=== PATIENT | female | born 1965 | race Caucasian/White ===

== ENCOUNTER 2016-12-29 15:57 | Emergency (ER) | payer SELFPAY ==
--- NOTE | 2016-12-29 17:33 | ED CLINICAL REPORT ---
Clinical Report - Physicians/Mid Levels [facility] [address] [place] [address] 12/29/2016 16:00 Patient: CONNOR DO Time Seen: 16:54 Dec 29 2016. Arrived- By private vehicle. HISTORY OF PRESENT ILLNESS Chief Complaint: SORE THROAT. 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 There has been no pain. The patient has had mouth sores. (reports recent dental pain, is on her second round of antibiotics, reports now rash inside her mouth. Denies fevers or chills. Denies any difficulties falling. Denies a cough. Recently moved to the area. Patient does not take any medications for her diabetes. Reports diet-controlled.). Recent medical care: The patient was seen recently in the office. REVIEW OF SYSTEMS No fever, difficulty breathing, nausea, diarrhea or headache. No fainting episodes. All systems otherwise negative, except as recorded above. PAST HISTORY Problems: Dental Caries. Hypertension. Diabetes Mellitus. Additional Surgeries: Hysterectomy. Vaginal repair. Medications: Tylenol Oral, PRN. Lisinopril Oral 20 mg, daily. Clindamycin HCl Oral (finished today). Allergies: Benadryl. Codeine.(nausea). SOCIAL HISTORY No drug use. ADDITIONAL NOTES The nursing notes have been reviewed. PHYSICAL EXAM Vital Signs: 12/29/2016 16:14 BP: 156/80. HR: 114. RR: 17. O2 saturation: 97%. Temp: 98.8 F. Appearance: Alert. No acute distress. ENT: Ears normal. Nose normal. A few mouth ulcerations present on the soft palate and buccal surface (white). No muffled or hoarse voice, drooling or trismus. Neck: Trachea midline. CVS: Normal heart rate and rhythm. Heart sounds normal. Respiratory: No respiratory distress. Breath sounds normal. LABS, X-RAYS, AND EKG Laboratory Tests: CBC w Diff: (SAL: 12/29/2016 17:00) ( MsgRcvd 12/29/2016 17:15) Final results Test Result Flag Units (Reference) WHITE BLOOD COUNT 5.3 K/uL (4.5-11.5) RED BLOOD COUNT 4.86 M/uL (4.00-5.20) HEMOGLOBIN 14.0 gm/dL (12.0-16.0) HEMATOCRIT 41.7 % (36.0-46.0) MEAN CELL VOLUME 86 fL (80-100) MEAN CORPUSCULAR HGB 29 pg (26-34) MEAN CORPUSCULAR HGB CONC 34 g/dL (31-37) RED CELL DISTRIBUTION WIDTH 11.5 L % (11.6-14.8) PLATELET COUNT 153 K/uL (150-400) NEUTROPHIL % 77.1 H % (50-75) LYMPH % 11.7 L % (25-40) MONO % 9.8 % (3-14) EOSINOPHIL % 1.2 % (0-4) BASOPHIL % 0.2 % (0-2) CMP: (SAL: 12/29/2016 17:00) ( MsgRcvd 12/29/2016 17:30) Final results Test Result Flag Units (Reference) GLUCOSE 445 H mg/dL (70-110) BUN 19 H mg/dL (7-18) CREATININE 0.8 mg/dL (0.6-1.3) Estimated GFR >60 mL/min Estimated GFR- >60 mL/min Note: Persistent reduction over 3 months in eGFR<60 mL/min/1.73 m2 defines CKD. Patients with eGFR values>=60 mL/min/1.73 m2 may also have CKD if evidence ofpersistent proteinuria. Additional information may be foundat www.kidney.org. SODIUM 134 L mmol/L (136-145) POTASSIUM 4.3 mmol/L (3.5-5.1) CHLORIDE 97 L mmol/L (98-107) CARBON DIOXIDE 28 mmol/L (21-32) CALCIUM 9.0 mg/dL (8.5-10.1) TOTAL PROTEIN 7.0 g/dL (6.4-8.2) ALBUMIN 3.5 g/dL (3.3-5.0) BILIRUBIN, TOTAL 0.5 mg/dL (0.0-1.0) ALKALINE PHOSPHATASE 52 U/L (46-116) AST (SGOT) 7 L U/L (15-37) ALT (SGPT) 18 U/L (12-78) . PROGRESS AND PROCEDURES Course of Care: Glucose: 450 16:16 10 units sc insulin R 17:30. Glucose: 381. Signs of thrush in setting of dm. Elevated glucose in ER, pt reports she does not take meds. CBC/ CMP negative, will initiate metformin, otherwise pt stable, and to establish pcp, given options for such. TO f/u outpatient. Non septic at this time. 12/29/2016 16:14 BP: 156/80. HR: 114. RR: 17. O2 saturation: 97%. Temp: 98.8 F. Patient is stable. Physical exam findings are improved. Symptoms better. Patient/family counseled. Differential Diagnosis: I considered viral pharyngitis, bacterial pharyngitis, mycoplasmal pharyngitis, gonococcal pharyngitis, palatine tonsillitis, thrush, aphthous stomatitis, herpetic gingivostomatitis, allergic stomatitis, erythema multiforme, mononucleosis, diphtheria, peritonsillar cellulitis, parapharyngeal abscess and sinusitis as a possible cause of sore throat in this patient. This is a partial list of diagnoses considered. Disposition: Discharged. Condition: good. CLINICAL IMPRESSION Chronic, poorly controlled type 2 diabetes. Hypertension. INSTRUCTIONS Drink plenty of fluids. ( [facility]). Prescription Medications: Ultram 50 mg: take 1 orally every 6 hours for 3 days. Dispense fifteen (15). No refills. Substitution is permissible. Metformin 500 mg: Take 1 orally every 12 hours. Dispense thirty (30). No refills. Fluconozole 200 mg po on day one, no refill. Fluconazole 150 mg po once daily for 7 days. Follow-up with: Salome Barry MD, [facility], , [facility], [address] [place] [address] Follow up. Call for the next available appointment. (Electronically signed by Es Delgado P.A.-C 12/29/2016 18:03)
--- NOTE | 2016-12-29 17:33 | ED CLINICAL REPORT ---
Clinical Report - Physicians/Mid Levels [facility] [address] [place] [address] 12/29/2016 16:00 Patient: CONNOR DO Time Seen: 16:54 Dec 29 2016. Arrived- By private vehicle. HISTORY OF PRESENT ILLNESS Chief Complaint: SORE THROAT. 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 There has been no pain. The patient has had mouth sores. (reports recent dental pain, is on her second round of antibiotics, reports now rash inside her mouth. Denies fevers or chills. Denies any difficulties falling. Denies a cough. Recently moved to the area. Patient does not take any medications for her diabetes. Reports diet-controlled.). Recent medical care: The patient was seen recently in the office. REVIEW OF SYSTEMS No fever, difficulty breathing, nausea, diarrhea or headache. No fainting episodes. All systems otherwise negative, except as recorded above. PAST HISTORY Problems: Dental Caries. Hypertension. Diabetes Mellitus. Additional Surgeries: Hysterectomy. Vaginal repair. Medications: Tylenol Oral, PRN. Lisinopril Oral 20 mg, daily. Clindamycin HCl Oral (finished today). Allergies: Benadryl. Codeine.(nausea). SOCIAL HISTORY No drug use. ADDITIONAL NOTES The nursing notes have been reviewed. PHYSICAL EXAM Vital Signs: 12/29/2016 16:14 BP: 156/80. HR: 114. RR: 17. O2 saturation: 97%. Temp: 98.8 F. Appearance: Alert. No acute distress. ENT: Ears normal. Nose normal. A few mouth ulcerations present on the soft palate and buccal surface (white). No muffled or hoarse voice, drooling or trismus. Neck: Trachea midline. CVS: Normal heart rate and rhythm. Heart sounds normal. Respiratory: No respiratory distress. Breath sounds normal. LABS, X-RAYS, AND EKG Laboratory Tests: CBC w Diff: (SAL: 12/29/2016 17:00) ( MsgRcvd 12/29/2016 17:15) Final results Test Result Flag Units (Reference) WHITE BLOOD COUNT 5.3 K/uL (4.5-11.5) RED BLOOD COUNT 4.86 M/uL (4.00-5.20) HEMOGLOBIN 14.0 gm/dL (12.0-16.0) HEMATOCRIT 41.7 % (36.0-46.0) MEAN CELL VOLUME 86 fL (80-100) MEAN CORPUSCULAR HGB 29 pg (26-34) MEAN CORPUSCULAR HGB CONC 34 g/dL (31-37) RED CELL DISTRIBUTION WIDTH 11.5 L % (11.6-14.8) PLATELET COUNT 153 K/uL (150-400) NEUTROPHIL % 77.1 H % (50-75) LYMPH % 11.7 L % (25-40) MONO % 9.8 % (3-14) EOSINOPHIL % 1.2 % (0-4) BASOPHIL % 0.2 % (0-2) CMP: (SAL: 12/29/2016 17:00) ( MsgRcvd 12/29/2016 17:30) Final results Test Result Flag Units (Reference) GLUCOSE 445 H mg/dL (70-110) BUN 19 H mg/dL (7-18) CREATININE 0.8 mg/dL (0.6-1.3) Estimated GFR >60 mL/min Estimated GFR- >60 mL/min Note: Persistent reduction over 3 months in eGFR<60 mL/min/1.73 m2 defines CKD. Patients with eGFR values>=60 mL/min/1.73 m2 may also have CKD if evidence ofpersistent proteinuria. Additional information may be foundat www.kidney.org. SODIUM 134 L mmol/L (136-145) POTASSIUM 4.3 mmol/L (3.5-5.1) CHLORIDE 97 L mmol/L (98-107) CARBON DIOXIDE 28 mmol/L (21-32) CALCIUM 9.0 mg/dL (8.5-10.1) TOTAL PROTEIN 7.0 g/dL (6.4-8.2) ALBUMIN 3.5 g/dL (3.3-5.0) BILIRUBIN, TOTAL 0.5 mg/dL (0.0-1.0) ALKALINE PHOSPHATASE 52 U/L (46-116) AST (SGOT) 7 L U/L (15-37) ALT (SGPT) 18 U/L (12-78) . PROGRESS AND PROCEDURES Course of Care: Glucose: 450 16:16 10 units sc insulin R 17:30. Glucose: 381. Signs of thrush in setting of dm. Elevated glucose in ER, pt reports she does not take meds. CBC/ CMP negative, will initiate metformin, otherwise pt stable, and to establish pcp, given options for such. TO f/u outpatient. Non septic at this time. 12/29/2016 16:14 BP: 156/80. HR: 114. RR: 17. O2 saturation: 97%. Temp: 98.8 F. Patient is stable. Physical exam findings are improved. Symptoms better. Patient/family counseled. Differential Diagnosis: I considered viral pharyngitis, bacterial pharyngitis, mycoplasmal pharyngitis, gonococcal pharyngitis, palatine tonsillitis, thrush, aphthous stomatitis, herpetic gingivostomatitis, allergic stomatitis, erythema multiforme, mononucleosis, diphtheria, peritonsillar cellulitis, parapharyngeal abscess and sinusitis as a possible cause of sore throat in this patient. This is a partial list of diagnoses considered. Disposition: Discharged. Condition: good. CLINICAL IMPRESSION Chronic, poorly controlled type 2 diabetes. Hypertension. INSTRUCTIONS Drink plenty of fluids. ( [facility]). Prescription Medications: Ultram 50 mg: take 1 orally every 6 hours for 3 days. Dispense fifteen (15). No refills. Substitution is permissible. Metformin 500 mg: Take 1 orally every 12 hours. Dispense thirty (30). No refills. Fluconozole 200 mg po on day one, no refill. Fluconazole 150 mg po once daily for 7 days. Follow-up with: Salome Barry MD, [facility], , [facility], [address] [place] [address] Follow up. Call for the next available appointment. (Electronically signed by Es Delgado P.A.-C 12/29/2016 18:03)
--- NOTE | 2016-12-29 17:34 | ED ORDER SUMMARY ---
..... Patient: CONNOR DO Order[facility] VisitID: [id number] [address] [place] [address] 51y, F Registration Date/Time: 12/29/2016 ORDER SHEET Weight: 66.9 kg (stated) Allergies: Codeine, Benadryl GENERAL ORDERS: POC Glucose (16:11 12/29/2016 EKoroleva P.A.-C) (16:15 ASchmuck) CBC w Diff Urgent (16:33 12/29/2016 EKoroleva P.A.-C) (Ack 16:42 LTapper) (20:11 omanelli R.N.) CMP Urgent (16:33 12/29/2016 EKoroleva P.A.-C) (Ack 16:42 LTapper) (20:11 Sujathaelli R.N.) MEDICATION ORDERS: Insulin Reg Subcut 10 units (HIGH ALERT MEDICATION, NOW) (16:20 12/29/2016 EKoroleva P.A.-C) (16:30 ASchmuck) Lidocaine Viscous PO (Solution 2 %) 15 mL (NOW) (16:20 12/29/2016 EKoroleva P.A.-C) (16:29 ASchmuck) IV FLUIDS: ORDER SHEET NOTES: [Electronically signed by Es DelgadoADonnie-C (18:03 12/29/2016)] [Electronically signed by Tony Dubose R.N. (20:12 12/29/2016)] [Electronically locked/signed by Tony Dubose R.N. (20:12 12/29/2016)]
--- NOTE | 2016-12-29 17:34 | ED ORDER SUMMARY ---
..... Patient: CONNOR DO OrderSheet [facility] VisitID: [id number] [address] [place] [address] 51y, F Registration Date/Time: 12/29/2016 ORDER SHEET Weight: 66.9 kg (stated) Allergies: Codeine, Benadryl GENERAL ORDERS: POC Glucose (16:11 12/29/2016 EKoroleva P.A.-C) (16:15 ASchmuck) CBC w Diff Urgent (16:33 12/29/2016 EKoroleva P.A.-C) (Ack 16:42 LTapper) (20:11 omanelli R.N.) CMP Urgent (16:33 12/29/2016 EKoroleva P.A.-C) (Ack 16:42 LTapper) (20:11 Sujathaelli R.N.) MEDICATION ORDERS: Insulin Reg Subcut 10 units (HIGH ALERT MEDICATION, NOW) (16:20 12/29/2016 EKoroleva P.A.-C) (16:30 ASchmuck) Lidocaine Viscous PO (Solution 2 %) 15 mL (NOW) (16:20 12/29/2016 EKoroleva P.A.-C) (16:29 ASchmuck) IV FLUIDS: ORDER SHEET NOTES: [Electronically signed by Es DelgadoADonnie-C (18:03 12/29/2016)] [Electronically signed by Tony Dubose R.N. (20:12 12/29/2016)] [Electronically locked/signed by Tony Dubose R.N. (20:12 12/29/2016)]
--- NOTE | 2016-12-29 17:34 | ED NURSING NOTES ---
Clinical Report - Nurses [facility] [address] [place] [address] 12/29/2016 16:00 [id number] Triage time 16:08 Dec 29 2016. Acuity: LEVEL 4. Chief Complaint: SORE THROAT. 16:14 12/29/16. Alert. No acute distress. SEPSIS SCREEN: Sepsis Screen. Negative (no infection suspected/documented). --16:14 Jocelyn Nassar 16:14 12/29/16. BP: 156/80. HR: 114. RR: 17. O2 saturation: 97%. Temp: 98.8 F. Pain level now 5/10. --16:14 Jocelyn Nassar. Weight: 66.9 kg stated. Height/Length: 60 inches Per Patient. BMI: 28.8. --16:14 Jocelyn Nassar. Medications Clindamycin HCl Oral (finished today). --16:09 Jocelyn Nassar Lisinopril Oral 20 mg, daily. --16:10 Jocelyn Nassar Tylenol Oral, PRN. --16:11 Jocelyn Nassar. Medication/allergy information source: the patient. --16:14 Jocelyn Nassar. Allergies Codeine.(nausea) --16:11 Jocelyn Nassar Benadryl. --16:11 Jocelyn Nassar. History Arrived by private vehicle. Historian: patient. Accompanied by spouse. No primary care physician. Onset. (Thursday). ( Pt has had a sore throat since Thursday. Reports white in mouth. Also reports a "bad tooth" that needs pulled.). She has had mouth sores and facial pain. No fever or hoarseness. She has had a toothache. 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 PAST MEDICAL HX: Dental caries. No history of strep throat or abscess. SOCIAL HX: Never smoker. Occasional alcohol use. No drug use. FALL RISK ASSESSMENT: Fall risk assessment completed. No fall risk identified. NUTRITIONAL RISK ASSESSMENT: The nutritional risk assessment revealed no deficiencies. FUNCTIONAL ASSESSMENT: Functional assessment: no impairments noted. LEARNING NEEDS ASSESSMENT: The learning needs assessment revealed no barriers. SKIN INTEGRITY ASSESSMENT: Skin integrity risk assessment completed. No skin integrity risk identified. --16:14 Jocelyn Nassar. PROBLEMS: Hypertension. Diabetes Mellitus. --16:09 Jocelyn Nassar. ADDITIONAL SURGERIES: Hysterectomy. Vaginal repair. --16:11 Jocelyn Nassar. Assessment The patient states feels the same. --16:14 Jocelyn Nassar. Interventions ID band on patient. --16:14 Jocelyn Nassar. PHYSICAL ASSESSMENT 16:15 12/29/16. Ambulatory to room. GENERAL / NEURO / PSYCH: Alert. Oriented X 4. Appears in no acute distress. HEENT: Pupils equal, round and reactive to light. Dental tenderness. Dental decay. Mucous membranes are pink. RESPIRATORY: Respirations not labored. CVS: Capillary refill less than 2 seconds. SKIN: Skin is warm and dry. Normal skin turgor. --16:15 Jocelyn Nassar. NURSING PROGRESS NOTES 16:15 12/29/16. The plan of care for this patient has been created. Head of bed elevated. Reassurance given. Two patient identifiers checked. Call light placed in reach. Side rails up x 1. Bed placed in lowest position. Brakes of bed on. Patient ready for evaluation- chart flagged and ED physician and PA notified. ( BGL 450). --16:15 Jocelyn Nassar Glucose: 450 16:16 Dec 29 2016. ( CBG 450). --16:16 Brady Garvin, R.N. 16:29 12/29/2016 Lidocaine Viscous PO Oral Suspension 5 mL given. Allergies verified and confirmed 5 rights. (Pt only wanted a partial dose.). --16:29 Jocelyn Nassar 16:30 12/29/2016 Insulin Reg Subcutaneous 10 unit given. Given in the right upper arm. Allergies verified and confirmed 5 rights. (ESTUARDO Weathers verified dose.). --16:30 Jocelyn Nassar 17:06 12/29/16. Care transferred and report given (Tony Alvarado RN). --17:06 Jocelyn Nassar 17:30. Point of care testing: performed by nurse. Glucose: 381. Result shown to the PA. Orders were received. --17:38 Tony Dubose R.N. DISPOSITION / DISCHARGE 17:45 12/29/16. BP: 136/85. HR: 78. RR: 16 (regular). O2 saturation: 98% on room air. Temp: 98.9 F (oral). Pain level now: 10. Additional comments: mouth sores. --20:09 Tony Dubose R.N. Departure time: 1750. --20:10 Tony Dubose R.N. 17:50. No learning barriers present. Discharge instructions provided and reviewed with the patient. Reviewed medication(s) dosing and course information. Reviewed referral to family practice for followup. Patient and spouse verbalized understanding. Written instructions provided in Setswana. The patient was discharged by the physician merchandising assistant. She was discharged home and accompanied by spouse. She left the Emergency Department ambulatory and via private vehicle. Spouse driving. --20:11 Tony Dubose R.N. Locked/Released at 12/29/2016 20:12 by Tony Dubose R.N.
--- NOTE | 2016-12-29 17:34 | ED NURSING NOTES ---
Clinical Report - Nurses [facility] [address] [place] [address] 12/29/2016 16:00 [id number] Triage time 16:08 Dec 29 2016. Acuity: LEVEL 4. Chief Complaint: SORE THROAT. 16:14 12/29/16. Alert. No acute distress. SEPSIS SCREEN: Sepsis Screen. Negative (no infection suspected/documented). --16:14 Jocelyn Nassar 16:14 12/29/16. BP: 156/80. HR: 114. RR: 17. O2 saturation: 97%. Temp: 98.8 F. Pain level now 5/10. --16:14 Jocelyn Nassar. Weight: 66.9 kg stated. Height/Length: 60 inches Per Patient. BMI: 28.8. --16:14 Jocelyn Nassar. Medications Clindamycin HCl Oral (finished today). --16:09 Jocelyn Nassar Lisinopril Oral 20 mg, daily. --16:10 Jocelyn Nassar Tylenol Oral, PRN. --16:11 Jocelyn Nassar. Medication/allergy information source: the patient. --16:14 Jocelyn Nassar. Allergies Codeine.(nausea) --16:11 Jocelyn Nassar Benadryl. --16:11 Jocelyn Nassar. History Arrived by private vehicle. Historian: patient. Accompanied by spouse. No primary care physician. Onset. (Thursday). ( Pt has had a sore throat since Thursday. Reports white in mouth. Also reports a "bad tooth" that needs pulled.). She has had mouth sores and facial pain. No fever or hoarseness. She has had a toothache. 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 PAST MEDICAL HX: Dental caries. No history of strep throat or abscess. SOCIAL HX: Never smoker. Occasional alcohol use. No drug use. FALL RISK ASSESSMENT: Fall risk assessment completed. No fall risk identified. NUTRITIONAL RISK ASSESSMENT: The nutritional risk assessment revealed no deficiencies. FUNCTIONAL ASSESSMENT: Functional assessment: no impairments noted. LEARNING NEEDS ASSESSMENT: The learning needs assessment revealed no barriers. SKIN INTEGRITY ASSESSMENT: Skin integrity risk assessment completed. No skin integrity risk identified. --16:14 Jocelyn Nassar. PROBLEMS: Hypertension. Diabetes Mellitus. --16:09 Jocelyn Nassar. ADDITIONAL SURGERIES: Hysterectomy. Vaginal repair. --16:11 Jocelyn Nassar. Assessment The patient states feels the same. --16:14 Jocelyn Nassar. Interventions ID band on patient. --16:14 Jocelyn Nassar. PHYSICAL ASSESSMENT 16:15 12/29/16. Ambulatory to room. GENERAL / NEURO / PSYCH: Alert. Oriented X 4. Appears in no acute distress. HEENT: Pupils equal, round and reactive to light. Dental tenderness. Dental decay. Mucous membranes are pink. RESPIRATORY: Respirations not labored. CVS: Capillary refill less than 2 seconds. SKIN: Skin is warm and dry. Normal skin turgor. --16:15 Jocelyn Nassar. NURSING PROGRESS NOTES 16:15 12/29/16. The plan of care for this patient has been created. Head of bed elevated. Reassurance given. Two patient identifiers checked. Call light placed in reach. Side rails up x 1. Bed placed in lowest position. Brakes of bed on. Patient ready for evaluation- chart flagged and ED physician and PA notified. ( BGL 450). --16:15 Jocelyn Nassar Glucose: 450 16:16 Dec 29 2016. ( CBG 450). --16:16 Brady Garvin, R.N. 16:29 12/29/2016 Lidocaine Viscous PO Oral Suspension 5 mL given. Allergies verified and confirmed 5 rights. (Pt only wanted a partial dose.). --16:29 Jocelyn Nassar 16:30 12/29/2016 Insulin Reg Subcutaneous 10 unit given. Given in the right upper arm. Allergies verified and confirmed 5 rights. (ESTUARDO Weathers verified dose.). --16:30 Jocelyn Nassar 17:06 12/29/16. Care transferred and report given (Tony Alvarado RN). --17:06 Jocelyn Nassar 17:30. Point of care testing: performed by nurse. Glucose: 381. Result shown to the PA. Orders were received. --17:38 Tony Dubose R.N. DISPOSITION / DISCHARGE 17:45 12/29/16. BP: 136/85. HR: 78. RR: 16 (regular). O2 saturation: 98% on room air. Temp: 98.9 F (oral). Pain level now: 10. Additional comments: mouth sores. --20:09 Tony Dubose R.N. Departure time: 1750. --20:10 Tony Dubose R.N. 17:50. No learning barriers present. Discharge instructions provided and reviewed with the patient. Reviewed medication(s) dosing and course information. Reviewed referral to family practice for followup. Patient and spouse verbalized understanding. Written instructions provided in Hungarian. The patient was discharged by the physician certified dental assistant. She was discharged home and accompanied by spouse. She left the Emergency Department ambulatory and via private vehicle. Spouse driving. --20:11 Tony Dubose R.N. Locked/Released at 12/29/2016 20:12 by Tony Dubose R.N.
--- NOTE | 2016-12-29 20:12 | ED MED RECONCILIATION SUMMARY ---
Patient: CONNOR DO Medication Reconciliation Report VisitID: [id number] [address] [place] [address] 51y, F Registration Date/Time: 12/29/2016 Weight: 66.9 kg Height/Length: 60 in. BMI: 28.8 ALLERGIES: Benadryl, Codeine The patient's Home Medications are listed below: THE FOLLOWING MEDICATIONS NEED TO BE RECONCILED: Clindamycin HCl Oral, finished today Lisinopril Oral 20 mg, daily Tylenol Oral, PRN The source(s) of the original Home Medication information: patient The following Medications were given to the patient in the Emergency Department: Lidocaine Viscous [PO] PO 5 mL, administered: 12/29/2016 4:29:00 PM Insulin Reg [Subcutaneous] Subcutaneous 10 unit, administered: 12/29/2016 4:30:00 PM The following Medications were prescribed to the patient: Fluconozole 200 mg po on day one, no refill. Fluconazole 150 mg po once daily for 7 days. -- Es Delgado, P.A.-C Ultram 50 mg: take 1 orally every 6 hours for 3 days. Dispense fifteen (15). No refills. Substitution is permissible. -- Es Delgado, P.A.-C Metformin 500 mg: Take 1 orally every 12 hours. Dispense thirty (30). No refills. -- Es Delgado, P.A.-C
--- NOTE | 2016-12-29 20:12 | ED DISCHARGE INSTRUCTIONS ---
Patient: CONNOR DO General Instructions [facility] VisitID: [id number] [place] [address] 51y, F Registration Date/Time: 12/29/2016 Chronic, poorly controlled type 2 diabetes. Hypertension. INSTRUCTIONS Drink plenty of fluids. ( [facility]). Prescription Medications: Ultram 50 mg: take 1 orally every 6 hours for 3 days. Dispense fifteen (15). No refills. Substitution is permissible. Metformin 500 mg: Take 1 orally every 12 hours. Dispense thirty (30). No refills. Fluconozole 200 mg po on day one, no refill. Fluconazole 150 mg po once daily for 7 days. Follow-up with: Salome Barry MD, [facility], , [facility], [address] [place] [address] Follow up. Call for the next available appointment. ADDITIONAL INFORMATION High Blood Pressure -- To Be Confirmed [No Tx] Your blood pressure was higher today than normal. Sometimes anxiety or pain can cause a temporary rise in blood pressure that later returns to normal. If your blood pressure is high on one measurement, this does not mean that you have hypertension (a chronic illness). However, you must have your blood pressure measured again within the next few days to find out if its still high. A normal blood pressure is 120/80 or less. The first (top) number is the "systolic" pressure. The second (bottom) number is the "diastolic" pressure. Hypertension exists when either the top number is 140 or higher, OR the bottom number is 90 or higher on repeated measurements. Blood pressure in the range of 120-140 (systolic) or 80-89 (diastolic) is considered "pre-hypertension". This means your are at risk for getting hypertension. You should have regular blood pressure checks to be sure your blood pressure is not rising. Home Care: Measure your blood pressure on 3 different days and write down the results. This can be done at your doctor's office or this facility. Some pharmacies and grocery stores offer automated blood pressure machines for your use. Follow Up: If your blood pressure is "high" (over 120/80) on 2 out of 3 days, you will need to follow up with your doctor for further evaluation and treatment. DO NOT PUT THIS OFF! Untreated high blood pressure increases the risk for heart attack, also known as acute myocardial infarction, or AMI, and stroke. It is a treatable condition. Get Prompt Medical Attention if any of the following occur: Chest pain or shortness of breath Severe headache Throbbing or rushing sound in the ears Nosebleed Sudden severe abdominal pain Extreme drowsiness, confusion or fainting Dizziness or vertigo (dizziness with spinning sensation) Weakness of an arm or leg or one side of the face Difficulty with speech or vision You have been given the following additional information: Hypertension, To Be Confirmed (Electronically signed by Es Delagdo P.A.-C 12/29/2016 18:03)
--- NOTE | 2016-12-29 20:12 | ED MED RECONCILIATION SUMMARY ---
Patient: CONNOR DO Medication Reconciliation Report [facility] VisitID: [id number] [address] [place] [address] 51y, F Registration Date/Time: 12/29/2016 Weight: 66.9 kg Height/Length: 60 in. BMI: 28.8 ALLERGIES: Benadryl, Codeine The patient's Home Medications are listed below: THE FOLLOWING MEDICATIONS NEED TO BE RECONCILED: Clindamycin HCl Oral, finished today Lisinopril Oral 20 mg, daily Tylenol Oral, PRN The source(s) of the original Home Medication information: patient The following Medications were given to the patient in the Emergency Department: Lidocaine Viscous [PO] PO 5 mL, administered: 12/29/2016 4:29:00 PM Insulin Reg [Subcutaneous] Subcutaneous 10 unit, administered: 12/29/2016 4:30:00 PM The following Medications were prescribed to the patient: Fluconozole 200 mg po on day one, no refill. Fluconazole 150 mg po once daily for 7 days. -- Es Delgado, P.A.-C Ultram 50 mg: take 1 orally every 6 hours for 3 days. Dispense fifteen (15). No refills. Substitution is permissible. -- Es Delgado, P.A.-C Metformin 500 mg: Take 1 orally every 12 hours. Dispense thirty (30). No refills. -- Es Delgado, P.A.-C
--- NOTE | 2016-12-29 20:12 | ED MAR SUMMARY ---
..... Medication Administration Record [facility] [address] [place] [address] Patient: CONNOR DO Visit ID: [id number] 51y, F Weight: 66.9 kg Height/Length: 60 in BMI: 28.8 ALLERGIES: Benadryl, Codeine Given 16:29 12/29/2016 Jocelyn Nassar, Medication Administered: LIDOCAINE VISCOUS [PO], Dose: 5 mL Oral Suspension PO. Medication Ordered: Lidocaine Viscous PO (Solution 2 %) 15 mL (NOW). Given 16:30 12/29/2016 Jocelyn Nassar, Medication Administered: INSULIN REG [SUBCUTANEOUS], Dose: 10 unit Subcutaneous. Medication Ordered: Insulin Reg Subcut 10 units (HIGH ALERT MEDICATION, NOW).
--- NOTE | 2016-12-29 20:12 | ED DISCHARGE INSTRUCTIONS ---
Patient: CONNOR DO General Instructions [facility] VisitID: [id number] [place] [address] 51y, F Registration Date/Time: 12/29/2016 Chronic, poorly controlled type 2 diabetes. Hypertension. INSTRUCTIONS Drink plenty of fluids. ( [facility]). Prescription Medications: Ultram 50 mg: take 1 orally every 6 hours for 3 days. Dispense fifteen (15). No refills. Substitution is permissible. Metformin 500 mg: Take 1 orally every 12 hours. Dispense thirty (30). No refills. Fluconozole 200 mg po on day one, no refill. Fluconazole 150 mg po once daily for 7 days. Follow-up with: Salome Barry MD, [facility], , [facility], [address] [place] [address] Follow up. Call for the next available appointment. ADDITIONAL INFORMATION High Blood Pressure -- To Be Confirmed [No Tx] Your blood pressure was higher today than normal. Sometimes anxiety or pain can cause a temporary rise in blood pressure that later returns to normal. If your blood pressure is high on one measurement, this does not mean that you have hypertension (a chronic illness). However, you must have your blood pressure measured again within the next few days to find out if its still high. A normal blood pressure is 120/80 or less. The first (top) number is the "systolic" pressure. The second (bottom) number is the "diastolic" pressure. Hypertension exists when either the top number is 140 or higher, OR the bottom number is 90 or higher on repeated measurements. Blood pressure in the range of 120-140 (systolic) or 80-89 (diastolic) is considered "pre-hypertension". This means your are at risk for getting hypertension. You should have regular blood pressure checks to be sure your blood pressure is not rising. Home Care: Measure your blood pressure on 3 different days and write down the results. This can be done at your doctor's office or this facility. Some pharmacies and grocery stores offer automated blood pressure machines for your use. Follow Up: If your blood pressure is "high" (over 120/80) on 2 out of 3 days, you will need to follow up with your doctor for further evaluation and treatment. DO NOT PUT THIS OFF! Untreated high blood pressure increases the risk for heart attack, also known as acute myocardial infarction, or AMI, and stroke. It is a treatable condition. Get Prompt Medical Attention if any of the following occur: Chest pain or shortness of breath Severe headache Throbbing or rushing sound in the ears Nosebleed Sudden severe abdominal pain Extreme drowsiness, confusion or fainting Dizziness or vertigo (dizziness with spinning sensation) Weakness of an arm or leg or one side of the face Difficulty with speech or vision You have been given the following additional information: Hypertension, To Be Confirmed (Electronically signed by Es Delgado P.A.-C 12/29/2016 18:03)
--- NOTE | 2016-12-29 20:12 | ED MAR SUMMARY ---
..... Medication Administration Record [facility] [address] [place] [address] Patient: CONNOR DO Visit ID: [id number] 51y, F Weight: 66.9 kg Height/Length: 60 in BMI: 28.8 ALLERGIES: Benadryl, Codeine Given 16:29 12/29/2016 Jocelyn Nassar, Medication Administered: LIDOCAINE VISCOUS [PO], Dose: 5 mL Oral Suspension PO. Medication Ordered: Lidocaine Viscous PO (Solution 2 %) 15 mL (NOW). Given 16:30 12/29/2016 Jocelyn Nassar, Medication Administered: INSULIN REG [SUBCUTANEOUS], Dose: 10 unit Subcutaneous. Medication Ordered: Insulin Reg Subcut 10 units (HIGH ALERT MEDICATION, NOW).
== END 2016-12-29 17:50 | disposition home or self-care (01) ==
LOC: ED SRH 15:57
DX: E11.9 Type 2 diabetes mellitus without complications (principal); I10 Essential (primary) hypertension; Z88.5 Allergy status to narcotic agent; Z79.899 Other long term (current) drug therapy
CPT/HCPCS: 90098; 90100; 95059